=== PATIENT | female | born 1975 | race African-American/Black ===

== ENCOUNTER 2016-10-14 09:27 | Emergency (ER) | payer OTHER ==
[~2016-10-14] VITALS: Ht 157.5 cm; Wt 99.8 kg
--- NOTE | 2016-10-14 09:27 | NUR ---
Patient BIBA BLS, transferred to bed 7. RN evaluating patient at bedside.
[2016-10-14 09:32] VITALS: BP 130/65
--- NOTE | 2016-10-14 09:32 | NUR ---
41/F BIBA FROM HOME FOR MID BACK PAIN ; RADIATES TO LEFT LEG X 2 WKS.AWAKE AND ALERT, NO FALL. DENIES N/V/D; SKIN IS PINK/WARM/DRY; AAOX4 WITH EVEN AND UNSTEADY GAIT; LUNGS CLEAR BL; HR EVEN AND REGULAR; PT DENIES ANY FEVER, CP, SOB, OR COUGH AT THIS TIME; PATIENT STATES PAIN OF 10/10 AT THIS TIME; VSS; PATIENT POSITIONED FOR COMFORT; HOB ELEVATED; BEDRAILS UP X2; BED DOWN. ER MD MADE AWARE OF PT STATUS.
--- NOTE | 2016-10-14 09:44 | NUR ---
AT BEDSIDE. Addendum: 10/14/16 at 0948 by [email or web address] PT STS MID BACK PAIN 12/08 & WANT PAIN MED. NOTIFIED DR HERMAN. PROVIED URINE CUP FOR URINE COLLECTION.
--- NOTE | 2016-10-14 09:50 | NUR ---
Dr. Higuera evaluating patient at bedside.
[2016-10-14] MEDS ORDERED: DIAZEPAM PFS 10 MG/2 ML SYR IM ONE (09:55)
[2016-10-14] MEDS ORDERED: MORPHINE SULFATE 4 MG/ML SYR IM ONE ×2 (09:55→10:50)
--- NOTE | 2016-10-14 10:06 | NUR ---
ADMINISTERED MED ORDER.Patient appears to be resting comfortably in bed. Vital Signs within normal limits. Respirations even and unlabored.WILL CONTINUE TO MONITOR.
--- NOTE | 2016-10-14 10:41 | NUR ---
PT STS PAIN 10/08.
--- NOTE | 2016-10-14 10:49 | NUR ---
Dr. Higuera reevaluating patient at bedside.
--- NOTE | 2016-10-14 11:30 | NUR ---
PT STS PAIN 05/08.
[2016-10-14 11:36] VITALS: BP 130/85
--- NOTE | 2016-10-14 11:36 | NUR ---
Patient discharged with 130/85; DENIES HEADACHE OR DIZZINESS; MD AWARE. Written and verbal after care instructions given and explained. Patient alert, oriented and verbalized understanding of instructions. Ambulatory with UNsteady gait. All questions addressed prior to discharge. ID band removed. Patient advised to follow up with PMD. Rx of CIPRO, NORCO,VALIUM & MOTRIN given. Patient educated on indication of medication including possible reaction and side effects. Opportunity to ask questions provided and answered.
== END 2016-10-14 11:36 | disposition home or self-care (01) ==
LOC: MED 09:27
DX: N39.0 Urinary tract infection, site not specified (principal); Z88.8 Allergy status to other drugs, medicaments and biological substances; J45.909 Unspecified asthma, uncomplicated; K21.9 Gastro-esophageal reflux disease without esophagitis; I10 Essential (primary) hypertension
CPT/HCPCS: 81002; 81025; 96372; 99284; J2270; J3360

== ENCOUNTER 2016-10-17 10:46 | Emergency (ER) | payer OTHER ==
[~2016-10-17] VITALS: Ht 165.1 cm; Wt 90.7 kg
[2016-10-17 10:55] VITALS: BP 144/66
--- NOTE | 2016-10-17 11:38 | NUR ---
PATIENT TO ER BED 3.
--- NOTE | 2016-10-17 11:45 | NUR ---
PATIENT PRESENTS TO ED WITH C/O EXACERBATION LEFT THIGH PAIN, THROBBING, TENDER---X 1 WK HYPERSENSITIVE TO TOUCH---+2 PEDAL / POPLITEAL PULSE HX----HTN, ASTHMA RX----ZANTAC, ATENOLOLO, LISINOPRIL, HYDROCHLOROTHIAZI; DENIES N/V/D; SKIN IS PINK/WARM/DRY; AAOX4 WITH EVEN AND STEADY GAIT; LUNGS CLEAR BL; HR EVEN AND REGULAR; PT DENIES ANY FEVER, CP, SOB, OR COUGH AT THIS TIME; PATIENT STATES PAIN OF 8/10 AT THIS TIME; VSS; PATIENT POSITIONED FOR COMFORT; HOB ELEVATED; BEDRAILS UP X2; BED DOWN. ER MD MADE AWARE OF PT STATUS.
--- NOTE | 2016-10-17 11:56 | NUR ---
PATIENT BEING EVALUATED BY DR. BYRNE.
[2016-10-17] MEDS ORDERED: HYDROmorphone PFS 2 MG/ML SYR IM ONE (12:05)
--- NOTE | 2016-10-17 12:11 | NUR ---
[employer] AT BEDSIDE
[2016-10-17 14:00] VITALS: BP 144/94
--- NOTE | 2016-10-17 14:00 | NUR ---
Patient discharged with v/s stable. Written and verbal after care instructions given and explained. Patient alert, oriented and verbalized understanding of instructions. Wheel Chair Assisted with to car. All questions addressed prior to discharge. ID band removed. Patient advised to follow up with PMD. Rx of PERCOCET given. Patient educated on indication of medication including possible reaction and side effects. Opportunity to ask questions provided and answered.
== END 2016-10-17 14:00 | disposition home or self-care (01) ==
LOC: MED 10:48
DX: S70.12XA Contusion of left thigh, initial encounter (principal); J45.909 Unspecified asthma, uncomplicated; K21.9 Gastro-esophageal reflux disease without esophagitis; I10 Essential (primary) hypertension; Z88.5 Allergy status to narcotic agent; Z88.8 Allergy status to other drugs, medicaments and biological substances; W17.89XA Other fall from one level to another, initial encounter; Y93.89 Activity, other specified; Y92.89 Other specified places as the place of occurrence of the external cause; Y99.8 Other external cause status
CPT/HCPCS: 73502; 73552; 93971; 96372; 99284; J1170; Q0092